=== PATIENT | male | born 1995 | race Caucasian/White ===

== ENCOUNTER 2021-03-12 08:25 | Emergency (ER) | payer MEDICAID ==
[~2021-03-12] VITALS: Ht 165.1 cm; Wt 61.2 kg
[2021-03-12 08:28] VITALS: BP 123/70
--- NOTE | 2021-03-12 08:39 | NUR ---
PT AMBULATED TO ER BED 7 WITH A STEADY GAIT.
--- NOTE | 2021-03-12 08:57 | NUR ---
25/M BIB SELF WITH C/O RIGHT ARM PAIN. PATIENT STATES HE HAD A DOG BITE ON RIGHT HAND AND RIGHT FOREARM ON 02/18/21, STATES SWELLING HAS DECREASED AND WOUNDS HAVE HEALED BUT STATES HE WOKE UP TODAY IN INCREASED PAIN IN THE RIGHT HAND. PATIENT HAS GOOD ROM, EQUAL SENSATION, PULSES EQUAL BILATERALLY. NO OPEN WOUNDS OR BLEEDING NOTED, DENIES NUMBING OR TINGLING.
--- NOTE | 2021-03-12 09:06 | NUR ---
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
[2021-03-12 09:34] VITALS: BP 123/70
--- NOTE | 2021-03-12 09:34 | NUR ---
Patient discharged with v/s stable. Written and verbal after care instructions given and explained. Patient verbalized understanding. Ambulatory with steady gait. All questions addressed prior to discharge. Advised to follow up with PMD.
== END 2021-03-12 09:34 | disposition home or self-care (01) ==
LOC: MED 08:25
DX: S60.221A Contusion of right hand, initial encounter (principal); Z98.890 Other specified postprocedural states; W54.0XXA Bitten by dog, initial encounter; Y93.89 Activity, other specified; Y92.89 Other specified places as the place of occurrence of the external cause; Y99.8 Other external cause status
CPT/HCPCS: 73130; 99283; Q0092